=== PATIENT | female | born 1995 | race Caucasian/White ===

== ENCOUNTER 2017-02-14 04:39 | Observation (INO) | payer OTHER ==
[2017-02-14] MEDS ORDERED: MORPHINE SULFATE 5 MG/ML PFS IVP ONE ×2 (04:54→07:52)
[2017-02-14] MEDS ORDERED: ONDANSETRON HCL IV 4 MG/2 ML VIAL IVP ONE (04:54)
--- NOTE | 2017-02-14 04:59 | Emergency Department Record ---
History of Present Illness - General Chief Complaint: Abdominal Pain Stated Complaint: RIB PAIN Time Seen by Provider: 02/14/17 04:53 Source: Patient Mode of Arrival: Ambulatory Limitations: No limitations - History of Present Illness Initial Comments: 21 yo female presents to ED with a CC of worsening RUQ abdominal pain that began last evening. Patient reports pain with deep breaths, denies fevers, chills, or recent illness. Patient denies vomiting or change in stools, and denies health problems at her baseline. Patient reports previous abdominal surgery including laparoscopy for cyst removal and appendectomy. MD Complaint: Abdominal pain Onset/Timin -: Hour(s) Location: RUQ Radiation: None Migration to: No migration Severity: Severe Quality: Other Consistency: Constant Improves With: Nothing Worsens With: Nothing Associated Symptoms: Nausea - Related Data LMP (females 10-50): Current Patient : No Home Medications Medication Instructions Recorded Confirmed Last Taken Doxycycline Hyclate [Doxycycline] 1 tab PO ASDIR 02/14/17 02/14/17 Unknown Allergies Allergy/AdvReac Type Severity Reaction Status Date / Time clarithromycin [From Biaxin] Allergy Intermediate HYPERSENSIT Unverified 18:51 IVITY dextromethorphan HBr Allergy Intermediate HYPERSENSIT Unverified 01/20/16 18:51 [From Supress DX] IVITY guaifenesin [From Supress DX] Allergy Intermediate HYPERSENSIT Unverified 18:51 IVITY latex Allergy Intermediate BLISTERS Unverified 01/20/16 18:51 montelukast sodium Allergy Intermediate HYPERSENSIT Unverified 01/20/16 18:51 [From Singulair] IVITY phenylephrine Allergy Intermediate HYPERSENSIT Unverified 01/20/16 18:51 [From Supress DX] IVITY cefixime [From Suprax] Allergy PT UNSURE Verified 02/14/17 04:48 OF REACTION tussin x cough syrup Allergy PT UNSURE Uncoded 02/14/17 04:48 OF REACTION Travel Screening - Travel/Exposure Within Last 30 Days Have you traveled within the last 30 days?: No - Travel/Exposure Within Last Year Have you traveled outside the [place] in the last year?: No - Additonal Travel Details Have you been exposed to anyone with a communicable illness?: No - Travel Symptoms Symptom Screening: None Review of Systems Constitutional: Denies: Chills, Fever, Malaise, Night sweats Eyes: Denies: Eye discharge, Eye pain ENT: Denies: Congestion, Ear pain, Epistaxis Respiratory: Denies: Cough, Dyspnea Cardiovascular: Denies: Chest pain, Dyspnea on exertion Endocrine: Denies: Fatigue, Heat or cold intolerance Gastrointestinal: Reports: Abdominal pain, Nausea. Denies: Constipation, Vomiting Genitourinary: Denies: Incontinence, Retention Musculoskeletal: Denies: Arthralgia, Back pain, Gout, Joint swelling Skin: Denies: Bruising, Change in color Neurological: Denies: Abnormal gait, Confusion, Headache, Seizure Psychiatric: Denies: Anxiety Hematological/Lymphatic: Denies: Anemia, Blood Clots Past Medical History - SOCIAL HISTORY Smoking Status: Never smoker Alcohol Use: None Drug Use: None - RESPIRATORY Hx Respiratory Disorders: No - CARDIOVASCULAR Hx Cardio Disorders: No - NEURO Hx Neuro Disorders: No - GI Hx GI Disorders: Yes Hx Reflux: Yes Hx Ulcer: Yes - Hx Genitourinary Disorders: Yes Comment:: endometriosis - ENDOCRINE Hx Diabetes: No Hx Thyroid Disease: No - MUSCULOSKELETAL Hx Musculoskeletal Disorders: No - PSYCH Hx Psych Problems: No - HEMATOLOGY/ONCOLOGY Hx Hematology/Oncology Disorders: No Family Medical History Any Significant Family History?: No Hx Cancer: Grandparents Hx Kidney Disease: Father, Mother, Grandparents *Kidney Comment: kideny stones Physical Exam - General General Appearance: Alert, Oriented x3, Cooperative, Moderate distress Limitations: No limitations - Head Head exam: Atraumatic, Normocephalic, Normal inspection Head exam detail: negative: Abrasion, Contusion, Boyd's sign, General tenderness, Hematoma, Laceration - Eye Eye exam: Normal appearance. negative: Conjunctival injection, Periorbital swelling, Periorbital tenderness, Scleral icterus - ENT Ear exam: negative: Auricular hematoma, Auricular trauma Nasal Exam: negative: Active bleeding, Discharge, Dried blood, Foreign body Mouth exam: negative: Drooling, Laceration, Muffled voice, Tongue elevation - Neck Neck exam: Normal inspection. negative: Meningismus, Tenderness - Respiratory Respiratory exam: Normal lung sounds bilaterally. negative: Rales, Respiratory distress, Rhonchi, Stridor - Cardiovascular Cardiovascular Exam: Regular rate, Normal rhythm, Normal heart sounds - GI/Abdominal GI/Abdominal exam: Soft, Tenderness (TTP along the RUQ, no rebound, no guarding present). negative: Rebound, Rigid - Rectal Rectal exam: Deferred - exam: Deferred - Extremities Extremities exam: Normal inspection. negative: Calf tenderness, Pedal edema, Tenderness - Back Back exam: Denies: CVA tenderness (R), CVA tenderness (L) - Neurological Neurological exam: Alert, Oriented X3 - Psychiatric Psychiatric exam: Normal affect, Normal mood - Skin Skin exam: Normal color. negative: Abrasion Type of lesion: negative: abrasion Course Vital Signs 02/14/17 04:42 Temperature 97.6 F Pulse Rate 77 Respiratory 20 Rate Blood Pressure 132/85 Pulse Ox 97 - Reevaluation(s) Reevaluation #1: 02/14/17 06:43 Labs reviewed and are grossly unremarkable for an acute process, large blood present in the urine without evidence for infection. CT Abdomen and Pelvis: No acute process Appendix is not definitively identified, small amount fluid surrounding the cecum. Patient reassessed and updated on all results thus far, reports that her pain symptoms are improved. Patient has no pain to the RLQ on examination, pain persists to the RUQ with palpation. As a result, will order US of the gallbladder for further evaluation. Reevaluation #2: 02/14/17 07:11 Bedside turnover performed, oncoming provider will assume care and disposition a this time pending US results. Medical Decision Making - Lab Data Result diagrams: 02/14/17 06:17 02/14/17 06:17 Disposition Forms: Patient Portal Access Quality - Quality Measures Quality Measures: N/A - Blood Pressure Screening Does Patient Have Any of the Following: No Blood Pressure Classification: Pre-Hypertensive BP Reading Systolic Measurement: 132 Diastolic Measurement: 85 Screening for High Blood Pressure: < Pre-Hypertensive BP, F/U Documented > [ G8950] Pre-Hypertensive Follow-up Interventions: Referral to alternative/primary care provider.
[2017-02-14] MEDS ORDERED: 0.9 % SODIUM CHLORIDE 1000ML 1,000 ML IV SCH (05:00)
[2017-02-14] MEDS ORDERED: HYDROMORPHONE HCL 1MG/ML **SYRINGE IVP ONE (05:37)
[2017-02-14 05:41] LABS: URINE APPEARANCE CLEAR; URINE BILIRUBIN NEGATIVE (NEGATIVE); URINE BLOOD LARGE (NEGATIVE); URINE COLOR YELLOW; URINE GLUCOSE (UA) NEGATIVE (NEGATIVE); URINE KETONE NEGATIVE (NEGATIVE); URINE LEUKOCYTE ESTERASE NEGATIVE (NEGATIVE); URINE NITRITE NEGATIVE (NEGATIVE); URINE PROTEIN NEGATIVE (NEGATIVE); URINE UROBILINOGEN 0.2 E.U./dL (0.20 - 1.00)
[2017-02-14 05:44] LABS: HCG,QUALITATIVE URINE NEGATIVE (NEGATIVE)
[2017-02-14 05:47] LABS: URINE BACTERIA NONE SEEN; URINE EPITHELIAL CELLS 0 - 2 (FEW); URINE WBC 0 - 2 (0-2/hpf)
[2017-02-14 06:23] LABS: BASO % 0.2 % (0-6); EOS % 2.2 % (0-6); GRAN % 66.4 % (47-80); HEMATOCRIT 42.4 % (35.0-47.0); HEMOGLOBIN 14.2 gm/dl (11.6-16.0); MEAN CELL VOLUME 84.6 fl (81-97); MEAN CORPUSCULAR HEMOGLOBIN 28.3 pg (27-33); MEAN CORPUSCULAR HGB CONC 33.5 g/dl (32-36); MEAN PLATELET VOLUME 10.1 fl (7.4-10.4); MONO % 7.2 % (0-9); PLATELET COUNT 344 K/uL (130-400); RED BLOOD COUNT 5.01 M/uL (3.80-5.40); RED CELL DISTRIBUTION WIDTH 13.7 % (11.5-14.5); WHITE BLOOD COUNT W/O DIFF 10.1 K/uL (4.2-12.2)
[2017-02-14 06:37] LABS: ALB/GLOB RATIO 1.3 (1.1-1.8); ALKALINE PHOSPHATASE 77 U/L (35-104); AST/SGOT 13 U/L (10.0-35.0); BLOOD UREA NITROGEN 11 mg/dL (6-20); CREATININE 0.6 mg/dL (0.5-0.9); EST GLOMERULAR FILTRATION RATE > 60 mL/min; GLUCOSE,RANDOM 98 mg/dL (74-109); LIPASE 30 U/L (13-60); TOTAL PROTEIN 7.1 g/dL (6.6-8.7)
[2017-02-14 06:38] LABS: ALT/SGPT < 5 U/L (<33)
--- NOTE | 2017-02-14 07:10 | Emergency Department Record ---
History of Present Illness - General Chief Complaint: Abdominal Pain Stated Complaint: RIB PAIN Time Seen by Provider: 02/14/17 04:53 Source: Patient Mode of Arrival: Ambulatory Limitations: No limitations - History of Present Illness MD Complaint: Abdominal pain Onset/Timin -: Hour(s) Location: RUQ Radiation: None Migration to: No migration Severity: Severe Quality: Other Consistency: Constant Improves With: Nothing Worsens With: Nothing Associated Symptoms: Nausea - Related Data LMP (females 10-50): Current Patient : No Home Medications Medication Instructions Recorded Confirmed Last Taken Doxycycline Hyclate [Doxycycline] 1 tab PO ASDIR 02/14/17 02/14/17 Unknown Allergies Allergy/AdvReac Type Severity Reaction Status Date / Time clarithromycin [From Biaxin] Allergy Intermediate HYPERSENSIT Unverified 18:51 IVITY dextromethorphan HBr Allergy Intermediate HYPERSENSIT Unverified 01/20/16 18:51 [From Supress DX] IVITY guaifenesin [From Supress DX] Allergy Intermediate HYPERSENSIT Unverified 18:51 IVITY latex Allergy Intermediate BLISTERS Unverified 01/20/16 18:51 montelukast sodium Allergy Intermediate HYPERSENSIT Unverified 01/20/16 18:51 [From Singulair] IVITY phenylephrine Allergy Intermediate HYPERSENSIT Unverified 01/20/16 18:51 [From Supress DX] IVITY cefixime [From Suprax] Allergy PT UNSURE Verified 02/14/17 04:48 OF REACTION tussin x cough syrup Allergy PT UNSURE Uncoded 02/14/17 04:48 OF REACTION Travel Screening - Travel/Exposure Within Last 30 Days Have you traveled within the last 30 days?: No - Travel/Exposure Within Last Year Have you traveled outside the [place] in the last year?: No - Additonal Travel Details Have you been exposed to anyone with a communicable illness?: No - Travel Symptoms Symptom Screening: None Review of Systems Constitutional: Denies: Chills, Fever, Malaise, Night sweats Eyes: Denies: Eye discharge, Eye pain ENT: Denies: Congestion, Ear pain, Epistaxis Respiratory: Denies: Cough, Dyspnea Cardiovascular: Denies: Chest pain, Dyspnea on exertion Endocrine: Denies: Fatigue, Heat or cold intolerance Gastrointestinal: Reports: Abdominal pain, Nausea. Denies: Constipation, Vomiting Genitourinary: Denies: Incontinence, Retention Musculoskeletal: Denies: Arthralgia, Back pain, Gout, Joint swelling Skin: Denies: Bruising, Change in color Neurological: Denies: Abnormal gait, Confusion, Headache, Seizure Psychiatric: Denies: Anxiety Hematological/Lymphatic: Denies: Anemia, Blood Clots Past Medical History - SOCIAL HISTORY Smoking Status: Never smoker Alcohol Use: None Drug Use: None - RESPIRATORY Hx Respiratory Disorders: No - CARDIOVASCULAR Hx Cardio Disorders: No - NEURO Hx Neuro Disorders: No - GI Hx GI Disorders: Yes Hx Reflux: Yes Hx Ulcer: Yes - Hx Genitourinary Disorders: Yes Comment:: endometriosis - ENDOCRINE Hx Diabetes: No Hx Thyroid Disease: No - MUSCULOSKELETAL Hx Musculoskeletal Disorders: No - PSYCH Hx Psych Problems: No - HEMATOLOGY/ONCOLOGY Hx Hematology/Oncology Disorders: No Family Medical History Any Significant Family History?: No Hx Cancer: Grandparents Hx Kidney Disease: Father, Mother, Grandparents *Kidney Comment: kideny stones Physical Exam - General Limitations: No limitations Course Vital Signs 02/14/17 02/14/17 02/14/17 04:42 06:03 06:50 Temperature 97.6 F Pulse Rate 77 Pulse Rate [ 91 H 73 Pulse Ox Probe] Respiratory 20 20 20 Rate Blood Pressure 132/85 Blood Pressure 129/82 130/71 [Left Arm] Pulse Ox 97 98 99 - Reevaluation(s) Reevaluation #1: 21 yo female patient was seen at bedside with Dr Montana The patient presented with RUQ that started at 11pm The labs, UA, CT were reviewed. The patient has had a prior appendectomy An US was ordered and is pending at this time 02/14/17 07:08 There are no acute changes of the labs or UA. 02/14/17 07:10 The pain has persisted so surgery consult was ordered with Dr Gonzalez. 02/14/17 09:31 Medical Decision Making - Lab Data Result diagrams: 02/14/17 06:17 02/14/17 06:17 Lab Results 02/14/17 02/14/17 02/14/17 Range/Units 05:43 06:17 06:17 WBC 10.1 (4.2-12.2) K/uL RBC 5.01 (3.80-5.40) M/uL Hgb 14.2 (11.6-16.0) gm/dl Hct 42.4 (35.0-47.0) % MCV 84.6 (81-97) fl MCH 28.3 (27-33) pg MCHC 33.5 (32-36) g/dl RDW 13.7 (11.5-14.5) % Plt Count 344 (130-400) K/uL MPV 10.1 (7.4-10.4) fl Gran % 66.4 (47-80) % Lymphocytes % 24.0 (16-45) % Monocytes % 7.2 (0-9) % Eosinophils % 2.2 (0-6) % Basophils % 0.2 (0-6) % Sodium 139 (136-145) mmol/L Potassium 3.8 (3.4-4.5) mmol/L Chloride 103 (98-107) mmol/L Carbon Dioxide 24.0 (22-29) mmol/L Anion Gap 12.0 (7-16) BUN 11 (6-20) mg/dL Creatinine 0.6 (0.5-0.9) mg/dL Estimated GFR > 60 mL/min Random Glucose 98 (74-109) mg/dL Calcium 8.8 (8.6-10.0) mg/dL Total Bilirubin 0.30 (0.2-1.0) mg/dL AST 13 (10.0-35.0) U/L ALT < 5 (<33) U/L Alkaline Phosphatase 77 (35-104) U/L Total Protein 7.1 (6.6-8.7) g/dL Albumin 4.0 (4.0-5.0) g/dL Globulin 3.1 (1.4-4.8) gm/dL Albumin/Globulin Ratio 1.3 (1.1-1.8) Lipase 30 (13-60) U/L Urine Color Yellow Urine Appearance Clear Urine pH 6.0 (5.0-8.0) Ur Specific [place] 1.020 (1.002-1.030) Urine Protein Negative (NEGATIVE) Urine Glucose (UA) Negative (NEGATIVE) Urine Ketones Negative (NEGATIVE) Urine Blood Large H (NEGATIVE) Urine Nitrite Negative (NEGATIVE) Urine Bilirubin Negative (NEGATIVE) Urine Urobilinogen 0.2 (0.20 - 1.00) E.U./dL Ur Leukocyte Esterase Negative (NEGATIVE) Urine RBC 3 - 6 (NONE SEEN) Urine WBC 0 - 2 (0-2/hpf) Ur Epithelial Cells 0 - 2 (FEW) Urine Bacteria None seen Urine HCG, Qual Negative (NEGATIVE) Disposition Disposition: Admit Clinical Impression: RUQ pain Disposition: Still a Patient at [facility] Decision to Admit: Admit from ER Decision to Admit Date: 02/14/17 Decision to Admit Time: : Condition: (2) Stable Time of Disposition: : Quality - Quality Measures Quality Measures: N/A - Blood Pressure Screening Blood Pressure Classification: Pre-Hypertensive BP Reading Systolic Measurement: 132 Diastolic Measurement: 85 Screening for High Blood Pressure: < Pre-Hypertensive BP, F/U Documented > [ G8950] Pre-Hypertensive Follow-up Interventions: Referral to alternative/primary care provider.
[2017-02-14] MEDS ORDERED: 0.9 % SODIUM CHLORIDE 1000ML 1,000 ML IV ONE (07:57)
[2017-02-14] MEDS ORDERED: ACETAMINOPHEN 1,000 MG/100 ML BTL IVPB ONE (10:02)
[2017-02-14] MEDS ORDERED: KETOROLAC 30 MG/ML VIAL IVP ONE (10:13)
[2017-02-14] MEDS ORDERED: 0.9 % SODIUM CHLORIDE 1000ML 1,000 ML IV PRN (11:47)
[2017-02-14] MEDS ORDERED: ONDANSETRON HCL IV 4 MG/2 ML VIAL IVP PRN (11:47)
[2017-02-14] MEDS: 0.9 % SODIUM CHLORIDE 1000ML 1,000 ML IV PRN ×2 (12:00→23:27)
[2017-02-14] MEDS: HYDROMORPHONE HCL 1MG/ML **SYRINGE IVP PRN ×2 (16:20→20:45)
[2017-02-14] MEDS: ACETAMINOPHEN 1,000 MG/100 ML BTL IVPB SCH (18:39)
[2017-02-15] MEDS: ACETAMINOPHEN 1,000 MG/100 ML BTL IVPB SCH ×2 (00:08→06:20)
[2017-02-15] MEDS: HYDROMORPHONE HCL 1MG/ML **SYRINGE IVP PRN ×2 (02:24→12:51)
--- NOTE | 2017-02-15 07:26 | CT SCAN REPORT ---
EXAM: CT OF THE ABDOMEN AND PELVIS WITH CONTRAST HISTORY: SHARP RIGHT UPPER QUADRANT ABDOMINAL PAIN BELOW RIGHT BREAST. TECHNIQUE: Contrast enhanced helical CT examination of the abdomen and pelvis was performed including delayed images through the kidneys with 90 ml of Omnipaque 300 utilized. Comparison: CT abdomen and pelvis without contrast dated 01/25/16. FINDINGS: There is mild dependent atelectasis in each lung base. The lung bases are otherwise clear and there is no pleural or pericardial effusion effusion. The heart is not enlarged. The gallbladder is normal in appearance and there is no biliary ductal dilatation. The liver, spleen, pancreas, adrenal glands, and kidneys are normal in appearance. No intraabdominal nor retroperitoneal lymphadenopathy. There is a patent portal vein. The central mesenteric vessels appear patent. The abdominal aorta and iliac arteries are normal in appearance. No pelvic mass, lymphadenopathy, or free pelvic fluid. The uterus is in the midline and normally positioned. Trace free fluid is noted in the cul-de-sac. No intrinsic urinary bladder abnormality is seen though evaluation is limited by lack of distention. No gross bowel dilatation nor bowel wall thickening identified though evaluation is limited by lack of oral contrast utilization. The appendix is not visualized with confidence. There is a small focus of soft tissue density having slightly ill defined margins in the left lower quadrant mesentery as best seen on image 103 of 135. This measures 1.2 x 1.7 cm. This is unchanged dating back to an 12/19/12 CT abdomen and pelvis without contrast examination. This suggests a benign process. This could relate to the stated history of endometriosis. No lytic or blastic bone lesion. There is anterior end plate spurring at the T8 -T9 level. A tiny fat filled umbilical hernia is noted. IMPRESSION: 1. SMALL AMOUNT OF FREE FLUID IN THE PELVIS IS NONSPECIFIC THOUGH PROBABLY PHYSIOLOGIC. 2. SMALL AREA OF NODULAR SOFT TISSUE DENSITY IN THE LEFT LOWER QUADRANT MESENTERY, STABLE SINCE 2012 CONSISTENT WITH A BENIGN PROCESS. 3. NO OTHER ABNORMALITY IDENTIFIED THOUGH THE APPENDIX IS NOT VISUALIZED WITH CONFIDENCE. JOB NUMBER: [id number] [facility]
--- NOTE | 2017-02-15 07:31 | ULTRASOUND REPORT ---
EXAM: ULTRASOUND OF THE ABDOMEN COMPLETE HISTORY: RIGHT UPPER QUADRANT PAIN SINCE LAST NIGHT. MILD NAUSEA. ENDOMETRIOSIS HISTORY. TECHNIQUE: Routine ultrasound examination of the abdomen was performed. Comparison: CT of the abdomen and pelvis with contrast dated 02/14/17 at 05: 46. FINDINGS: The pancreatic tail is obscured by overlying bowel gas. The remainder of the pancreas is visualized and normal in appearance. The abdominal aorta is without aneurysmal dilatation and the inferior vena cava is patent. The liver is homogeneous in echotexture. No intra or extrahepatic biliary ductal dilatation is seen with the common hepatic duct measuring 2.5 mm. The gallbladder is normal in appearance though there is a reported positive sonographic Jaquez's sign. There is a rounded echogenic area adjacent to the gallbladder neck likely relating to bowel/duodenum. The spleen is not enlarged and is homogeneous in echotexture. Screening evaluation of the kidneys does not demonstrate hydronephrosis or mass with the right kidney measuring 10.6 cm in length and the left kidney measuring 10.7 cm in length. IMPRESSION: NO ABNORMALITY VISUALIZED ON DAILEY SCALE IMAGING THOUGH THERE IS A POSITIVE SONOGRAPHIC JAQUEZ'S SIGN REPORTED WITH EARLY CHANGE OF CHOLECYSTITIS NOT EXCLUDED. JOB NUMBER: [id number] [facility]
--- NOTE | 2017-02-15 07:35 | NUCLEAR MEDICINE REPORT ---
EXAM: NUCLEAR MEDICINE HEPATOBILIARY SCAN HISTORY: RIGHT UPPER QUADRANT PAIN. TECHNIQUE: Nuclear medicine hepatobiliary scan was performed after intravenous administration of 6.07 millicuries of Technetium 99M mebrofenin and 1.8 micrograms of Kinevac. FINDINGS: There is normal radiotracer uptake identified within the liver, gallbladder, biliary tree and small bowel within 45 minutes. The calculated ejection fraction of the gallbladder is 19%. Normal range is above 35%. IMPRESSION: 1. NO SCINTIGRAPHIC EVIDENCE OF CYSTIC OR COMMON BILE DUCT OBSTRUCTION. 2. CALCULATED EJECTION FRACTION OF THE GALLBLADDER IS 19%. NORMAL RANGE IS ABOVE 35%. FINDINGS ARE CONSISTENT WITH BILIARY DYSKINESIA. JOB NUMBER: [id number] [facility]
[2017-02-15] MEDS: RINGERS SOLUTION,LACTATED 1,000 ML IV ONE ×2 (09:55→14:43)
[2017-02-15] MEDS ORDERED: ACETAMINOPHEN 1,000 MG/100 ML BTL IV ONE (15:00)
[2017-02-15] MEDS ORDERED: MECLIZINE 25 MG TABLET PO ONE (15:00)
[2017-02-15] MEDS ORDERED: METOCLOPRAMIDE 10 MG TABLET PO ONE (15:00)
[2017-02-15] MEDS ORDERED: SODIUM CHLORIDE 0.9% IV ONE (15:00)
[2017-02-15] MEDS ORDERED: ACETAMINOPHEN IV ONE (15:00)
[2017-02-15] MEDS ORDERED: FAMOTIDINE 20MG TABLET PO ONE (15:00)
[2017-02-15] MEDS ORDERED: ACETAMINOPHEN W/ CODEINE 300MG/30MG TABLET PO ONE ×2 (18:16→18:40)
[2017-02-15] MEDS ORDERED: BUPIVACAINE 0.25% W/EPI MPF 30ML VIAL IVP ONE (19:00)
[2017-02-15] MEDS ORDERED: KETOROLAC 30 MG/ML VIAL IVP ONE (19:09)
[2017-02-15] MEDS ORDERED: ONDANSETRON HCL IV 4 MG/2 ML VIAL IVP ONE (19:09)
[2017-02-15] MEDS ORDERED: NEOSTIGMINE 1 MG/1 ML,10ML VIAL IV ONE (19:09)
[2017-02-15] MEDS ORDERED: PROPOFOL 10 MG/ML VIAL IV ONE (19:09)
[2017-02-15] MEDS ORDERED: SUCCINYLCHOLINE 20 MG/ML 10ML IVP ONE (19:09)
[2017-02-15] MEDS ORDERED: GLYCOPYRROLATE 0.2 MG/ML ML IV ONE (19:09)
[2017-02-15] MEDS ORDERED: SEVOFLURANE 250 ML INH ONE (19:09)
[2017-02-15] MEDS ORDERED: ROCURONIUM BROMIDE 50MG/5ML VIAL IV ONE (19:09)
[2017-02-15] MEDS ORDERED: MIDAZOLAM HCL 2MG/2ML VIAL IV ONE (19:09)
[2017-02-15] MEDS ORDERED: FENTANYL PF 100MCG/2ML VIAL IV ONE (19:09)
[2017-02-15] MEDS ORDERED: LIDOCAINE 2% MDV (20MG/ML) 20ML VIAL IV ONE (19:09)
--- NOTE | 2017-02-16 09:20 | Medical Records Consult ---
DATE OF CONSULTATION: 02/14/2017 REASON FOR CONSULTATION: Abdominal pain. HISTORY: Patient is a 20-year-old female who stated that she developed some right flank and right upper quadrant pain right before bed last night. She woke up with this this morning, and it was much worse. She did have some nausea in the ER, and did vomit once. She has felt comfortable since getting some antiemetics. She has never had this before. She has had no food relationship. No dark urine or acholic stools noted. CT scan was done, which showed some question of fluid around the cecum. Gallbladder appeared grossly normal. Ultrasound was done, which showed no evidence of cholelithiasis. Gallbladder wall and ductal systems were normal caliber. PAST MEDICAL HISTORY: Negative for any significant illnesses. PAST SURGICAL HISTORY: Laparoscopic appendectomy and laparoscopy for cyst removal. MEDICATIONS: Currently takes doxycycline. ALLERGIES: Biaxin, latex, Singulair, Suprax. SOCIAL HISTORY: Denies any tobacco or alcohol usage. PHYSICAL EXAMINATION: VITAL SIGNS: Stable. She is afebrile. HEART: Regular rate and rhythm. LUNGS: Clear. ABDOMEN: Soft. Obese. She is tender along her right costal margin. There is a supraumbilical navel piercing noted. There is no guarding or rebound. IMPRESSION AND PLAN: At this time, a long discussion was undertaken with the patient. Her pain is still present even with narcotics and antiemetics. She will therefore be admitted for observation status. Her ultrasound and CT scan were normal, therefore we will check a HIDA scan with [facility] later today. Part of her presentation suggests this is more musculoskeletal than gallbladder in nature. We will talk to her further after her HIDA. Thank you for this referral. KAM
--- NOTE | 2017-02-16 10:30 | Operative Note ---
DATE OF SURGERY: 02/15/2017 PREOPERATIVE DIAGNOSIS: Symptomatic biliary dyskinesia. POSTOPERATIVE DIAGNOSIS: Symptomatic biliary dyskinesia. OPERATION: Laparoscopic cholecystectomy. INDICATION: Patient is a 21-year-old female who developed fairly intense, right subcostal pain on 02/14/2017. This is intractable. Therefore, she was admitted to the hospital. Ultrasound and CT scan were essentially normal. The pain required multiple doses of IV narcotics. We did obtain a HIDA scan, which showed an impaired ejection fraction with extreme pain. We did discuss cholecystectomy versus medical management. She desires surgical intervention. Risks include, but are not limited to, bleeding, infection, ductal injury, possible conversion to open, postoperative bile leak, nonresolution of her symptoms, and she understood this fully. The consent was signed and questions were answered. PROCEDURE: She was taken to the operating room and placed in the supine position where general anesthesia was administered per Department of Anesthesia. Patient's abdomen was prepped and draped in the usual fashion. The infraumbilical region was anesthetized with a total of 5 mL of 0.25% Sensorcaine with epinephrine. A 2 cm infraumbilical incision made. This was carried down bluntly to the anterior rectus fascia. This was incised. Kolton clamps were placed on the fascial edges and brought up into the wound. Stay sutures of 0 Vicryl placed. Posterior rectus sheath was identified, incised and the peritoneal cavity was entered bluntly. At this time, a 10 mm blunt Ramona port was placed and adequate pneumoperitoneum established. Under direct visualization, an additional 5 mm epigastric and two 5 mm right subcostal ports were placed. The patient was then rotated into reverse Trendelenburg, rotation to the left. Gallbladder was identified. It was noted to be edematous. There were anterior omental adhesions, which were swept away. The gallbladder was then retracted in a cephalad and lateral direction, opening up the angle of Calot. The hepatocystic triangle was thoroughly dissected off. The distal half of the gallbladder was released from the cystic plate elongated our retroductal space. There were only 2 structures in the angle of Calot, cystic duct, and cystic artery. Each one was circumferentially skeletonized in a 360 degree fashion. We had an excellent view. The cystic artery was taken on the Eddi harmonics, cystic duct was triply cut in standard fashion. The gallbladder was taken off the liver bed with Eddi harmonic. This was then extracted through the umbilical port. Right lower quadrant was rechecked and noted to be hemostatic. No bleeding, no bile leak, and no bowel injury noted. The patient was leveled out and pneumoperitoneum was released. All ports were removed. The fascia was closed with 0 Vicryl in a [id number] fashion. The skin in all 4 ports closed with 4-0 Vicryl. She was taken to recovery room in satisfactory condition. FINDINGS AT TIME OF SURGERY: Thickened, edematous gallbladder wall consistent with chronic cholecystitis. [facility]
== END 2017-02-15 19:10 | disposition home or self-care (01) ==
LOC: ER 04:39 → MEDSURG 11:11
PROVIDERS: ADMIT Surgery; ATTEND Surgery
DX: K82.8 Other specified diseases of gallbladder (principal)
CPT/HCPCS: 99285 ×2; 96376; 96365; 96375; 83690; 85025; 80053; 81001; 81025; 76700; 74177; 78227; 47562; 00790; G0378 ×2; Q9967; A9537; J1885; J2405 ×2; J2270; J1170 ×2; J0330; J2710; J7030; J7120

== ENCOUNTER 2017-05-20 19:32 | Emergency (ER) | payer OTHER ==
[2017-05-20] MEDS ORDERED: 0.9 % SODIUM CHLORIDE 1,000 ML BAG IV ONE (19:44)
[2017-05-20] MEDS ORDERED: ONDANSETRON HCL IV 4 MG/2 ML VIAL IV ONE (19:44)
--- NOTE | 2017-05-20 19:45 | Emergency Department Record ---
History of Present Illness - General Stated Complaint: VOMITING AND ABD PAINS Time Seen by Provider: 05/20/17 19:39 Source: Patient, Family Mode of Arrival: Ambulatory Limitations: No limitations - History of Present Illness Initial Comments: 22 yo female presents at 10 weeks with nausea and vomiting. She reports nausea with vomiting about every morning. Today the nausea and vomiting continued all day. No vaginal bleeding. No discharge. She does have some occasional upper abdominal cramps. No diarrhea. She had her gallbladder out in January without complications. MD Complaint: Abdominal pain -: Hour(s) (12) Location: Epigastric Radiation: Epigastric Migration to: Epigastric Severity: Moderate Quality: Cramping Consistency: Intermittent Improves With: Nothing Worsens With: Eating Associated Symptoms: Anorexia, Vomiting - Related Data Previous Rx's Medication Instructions Recorded Ondansetron [Zofran Odt] 4 mg PO Q8H #12 tab.rapdis 05/20/17 Allergies Allergy/AdvReac Type Severity Reaction Status Date / Time clarithromycin [From Biaxin] Allergy Intermediate HYPERSENSIT Unverified 09:12 IVITY dextromethorphan HBr Allergy Intermediate HYPERSENSIT Unverified 04/15/17 09:12 [From Supress DX] IVITY guaifenesin [From Supress DX] Allergy Intermediate HYPERSENSIT Unverified 09:12 IVITY latex Allergy Intermediate BLISTERS Unverified 04/15/17 09:12 montelukast sodium Allergy Intermediate HYPERSENSIT Unverified 04/15/17 09:12 [From Singulair] IVITY phenylephrine Allergy Intermediate HYPERSENSIT Unverified 04/15/17 09:12 [From Supress DX] IVITY cefixime [From Suprax] Allergy PT UNSURE Unverified 04/15/17 09:12 OF REACTION tussin x cough syrup Allergy PT UNSURE Uncoded 02/14/17 04:48 OF REACTION Review of Systems Constitutional: Denies: Chills, Fever, Malaise, Weakness Eyes: Denies: Eye discharge ENT: Denies: Congestion, Throat pain Respiratory: Denies: Cough, Dyspnea, Hemoptysis, Wheezes Cardiovascular: Denies: Chest pain, Palpitations, Syncope Endocrine: Denies: Fatigue, Polydipsia, Polyuria Gastrointestinal: Reports: As per HPI, Abdominal pain, Nausea, Vomiting. Denies : Constipation, Diarrhea, Hematemesis, Hematochezia Genitourinary: Denies: Dysuria, Urgency Musculoskeletal: Denies: Arthralgia, Back pain, Myalgia, Neck pain Skin: Denies: Bruising, Change in color, Rash Neurological: Denies: Headache, Numbness, Weakness Psychiatric: Denies: Anxiety Hematological/Lymphatic: Denies: Blood Clots, Easy bleeding, Easy bruising, Swollen glands Past Medical History - SOCIAL HISTORY Smoking Status: Never smoker Drug Use: None - RESPIRATORY Hx Respiratory Disorders: No - CARDIOVASCULAR Hx Cardio Disorders: No - NEURO Hx Neuro Disorders: No - GI Hx GI Disorders: Yes Hx Reflux: Yes Hx Ulcer: Yes - Hx Genitourinary Disorders: Yes Comment:: endometriosis - ENDOCRINE Hx Diabetes: No Hx Thyroid Disease: No - MUSCULOSKELETAL Hx Musculoskeletal Disorders: No - PSYCH Hx Psych Problems: No - HEMATOLOGY/ONCOLOGY Hx Hematology/Oncology Disorders: No Family Medical History Hx Cancer: Grandparents Hx Kidney Disease: Father, Mother, Grandparents *Kidney Comment: kideny stones Physical Exam - General General Appearance: Alert, Oriented x3, Cooperative, No acute distress Limitations: No limitations - Head Head exam: Atraumatic, Normal inspection - Eye Eye exam: Normal appearance, Conjunctival injection. negative: Scleral icterus - ENT ENT exam: Normal exam, Mucous membranes moist. negative: Mucous membranes dry, Normal orophraynx Ear exam: Normal external inspection Nasal Exam: Normal inspection Mouth exam: Normal external inspection Teeth exam: Normal inspection Throat exam: Normal inspection. negative: Tonsillar erythema, Tonsillar exudate - Neck Neck exam: Normal inspection, Full ROM. negative: Tenderness - Respiratory Respiratory exam: Normal lung sounds bilaterally. negative: Respiratory distress - Cardiovascular Cardiovascular Exam: Regular rate, Normal rhythm, Normal heart sounds - GI/Abdominal GI/Abdominal exam: Soft, Tenderness (epigastric). negative: Distended, Guarding , Rebound - Rectal Rectal exam: Deferred - exam: Deferred - Extremities Extremities exam: Normal inspection, Full ROM, Normal capillary refill. negative: Tenderness - Back Back exam: Denies: CVA tenderness (R), CVA tenderness (L) - Neurological Neurological exam: Alert, Oriented X3 - Psychiatric Psychiatric exam: Normal affect, Normal mood - Skin Skin exam: Dry, Intact, Normal color, Warm Course - Reevaluation(s) Reevaluation #1: 05/20/17 20:19 The vitals were reviewed No acute changes CBC no acute changes Bedside US used to visualize the fetus with good FHR approx 120-130 Awaiting IV - RN reports difficult stick. Oral Zofran provided. 05/20/17 20:33 BMP reviewed. HCO3 19 with AG 17. The patient is taking some oral PO 05/20/17 20:38 NS now infusing. Patient feeling better. 05/20/17 21:25 The UA was reviewed. No acute signs of infection. Small amount of ketones. 05/20/17 22:01 The patient continues to do very well with resolved, controlled nausea and pain. She had had PO fluids and solids. 2nd liter infusing. anticipate DC after 2nd liter. Medical Decision Making - Lab Data Result diagrams: 05/20/17 19:58 05/20/17 19:58 Disposition Disposition: Discharge Clinical Impression: Hyperemesis arising during Nausea & vomiting Qualifiers: Vomiting type: unspecified Vomiting Intractability: non-intractable Qualified Code(s): R11.2 - Nausea with vomiting, unspecified Disposition: Home, Self-Care Condition: (1) Good Instructions: Hyperemesis Gravidarum (ED), Acute Nausea and Vomiting (ED) Additional Instructions: Call your OB for close follow up of your symptoms Continue your Unisom as directed You may sparingly use the Zofran for nausea Prescriptions: Ondansetron [Zofran Odt] 4 mg PO Q8H #12 tab.rapdis Time of Disposition: 21:27 Quality - Quality Measures Quality Measures: N/A - Blood Pressure Screening Does Patient Have Any of the Following: No Blood Pressure Classification: Normal BP Reading Systolic Measurement: 108 Diastolic Measurement: 77 Screening for High Blood Pressure: < Normal BP, F/U Not Required > [[id number]] Pre-Hypertensive Follow-up Interventions: Referral to alternative/primary care provider.
[2017-05-20 20:04] LABS: HEMATOCRIT 40.9 % (35.0-47.0); HEMOGLOBIN 14.6 gm/dl (11.6-16.0); MEAN CELL VOLUME 83.8 fl (81-97); MEAN CORPUSCULAR HEMOGLOBIN 29.9 pg (27-33); MEAN CORPUSCULAR HGB CONC 35.7 g/dl (32-36); MEAN PLATELET VOLUME 10.4 fl (7.4-10.4); PLATELET COUNT 382 K/uL (130-400); RED BLOOD COUNT 4.88 M/uL (3.80-5.40); RED CELL DISTRIBUTION WIDTH 13.8 % (11.5-14.5); WHITE BLOOD COUNT W/O DIFF 7.1 K/uL (4.2-12.2)
[2017-05-20] MEDS ORDERED: ONDANSETRON 4 MG ODT TABLET SL ONE ×2 (20:08→21:59)
[2017-05-20 20:25] LABS: ALB/GLOB RATIO 1.1 (1.1-1.8); BLOOD UREA NITROGEN 7 mg/dL (6-20); CREATININE 0.5 mg/dL (0.5-0.9); EST GLOMERULAR FILTRATION RATE > 60 mL/min; GLUCOSE,RANDOM 110 mg/dL (74-109); LIPASE 28 U/L (13-60); TOTAL PROTEIN 7.8 g/dL (6.6-8.7)
[2017-05-20] MEDS ORDERED: AL HYDROX/MAG HYDROX 30ML UD PO ONE (20:56)
[2017-05-20 21:01] LABS: ALKALINE PHOSPHATASE 106 U/L (35-104)
[2017-05-20 21:02] LABS: ALT/SGPT 20 U/L (<33); AST/SGOT 33 U/L (10.0-35.0)
[2017-05-20 21:13] LABS: URINE APPEARANCE CLOUDY; URINE BILIRUBIN NEGATIVE (NEGATIVE); URINE BLOOD NEGATIVE (NEGATIVE); URINE COLOR YELLOW; URINE GLUCOSE (UA) NEGATIVE (NEGATIVE); URINE KETONE 15 mg/dL (NEGATIVE); URINE LEUKOCYTE ESTERASE TRACE (NEGATIVE); URINE NITRITE NEGATIVE (NEGATIVE); URINE PROTEIN TRACE (NEGATIVE)
[2017-05-20 21:22] LABS: URINE BACTERIA 1+; URINE RBC 0 - 2 (NONE SEEN); URINE SQUAMOUS EPITHELIAL CELL 21 - 35 /hpf; URINE WBC 0 - 2 (0-2/hpf)
== END 2017-05-20 23:27 | disposition home or self-care (01) ==
LOC: ER 19:32
DX: O21.0 Mild hyperemesis gravidarum (principal); R10.13 Epigastric pain; Z3A.10 10 weeks gestation of pregnancy
CPT/HCPCS: 80053; 81001; 83690; 85027; 96361; 96374; 99284; J7030